=== PATIENT | female | born 1945 | race Caucasian/White ===

== ENCOUNTER → 2017-05-14 | Day surgery (SDC) | payer MEDICARE ==
[~2017-05-14] VITALS: Ht 157.5 cm; Wt 56.1 kg
[~2017-05-14] MED LIST: ARTIFICIALS TEA30 ML OPHTH; ASPIR-LOW81 MG PO; AYR50 ML NOSE; AZO CRANBERRY1 EAC1 PO; CALCIUM 600 +1 EAC6 PO; CENTRUM SILVER1 TAB PO; CLINORIL200 MG PO; CO Q-10100 MG PO; EVISTA60 MG PO; KLONOPIN1 M1 PO; LIVALO2 MG PO; MILK OF MA400 MG/5 M PO; MIRALAX17 GM PO; MUCINEX1200 MG PO; NORCO 5-325 MG1 TAB PO; NORCO 5-325 TA1 EACH PO; OSTEO BI-FLEX1 EAC1 PO; PRESERVISION A1 EAC1 PO; SURFAK240 MG PO; TYLENOL325 MG PO; VITAMIN E400 UNI1 PO
--- NOTE | ~2017-05-14 | OR ---
PATIENT'S NAME: JOSTIN BARTON [facility] AGE: 71 Y [address] ROOM: [place] [id number] LOCATION: [facility] – [place] ADMIT DATE: 05/14/2017 OR/Procedure Report DISCHARGE DATE: FAMILY PHYSICIAN: Esa Craft MD ATTENDING PHYSICIAN: SCOTT MATSON SURGEON: Scott Matson MD RICE FARMWORKER: None. 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 POSTOPERATIVE DIAGNOSIS: Right chin basal cell carcinoma. PROCEDURE PERFORMED: 1. Wide local excision right chin basal cell carcinoma 4.4 x 3.3 cm. 2. Local flap reconstruction 7.0 x 6.0 cm. ANESTHESIA: General endotracheal. COMPLICATIONS: None. BLOOD LOSS: 15 mL. SPECIMENS: Right chin lesions. FINDINGS: Negative frozen section margins. INDICATIONS: The patient is a pleasant, 71-year-old female with a history of a biopsy-proven right chin basal cell carcinoma. We discussed surgical excision which she provided informed consent for. PROCEDURE IN DETAIL: The patient was brought from the preoperative area to the operative suite, placed on table in supine position. All pressure points were padded. A time-out was performed correctly identifying the patient and the procedure. General endotracheal anesthesia was initiated. The right chin was marked out and injected with 1% lidocaine with epinephrine and 0.5% Marcaine with epinephrine in a 1:1 ratio. The area was prepped and draped in usual sterile fashion. This was excised in a circular fashion with 3 mm margins down to the subcutaneous layer above the orbicularis donaldo. This was taken off, marked with suture, and sent for frozen section margin which returned negative. A rotational flap was developed and wide undermining performed. This was inset with 5-0 Vicryl sutures deep and 5-0 fast gut sutures for the skin. Burow's triangles were removed as necessary. Ointment was applied. The patient was returned to the care of anesthesia for extubation and recovery. PATIENT'S NAME: JOSTIN BARTON [facility] AGE: 71 Y [address] ROOM: [place] [address] LOCATION: [facility] [place] ADMIT DATE: 05/14/2017 OR/Procedure Report DISCHARGE DATE: FAMILY PHYSICIAN: Eas Craft MD ATTENDING PHYSICIAN: HUYEN,SCOTT MD MARYELLEN TORRES/giovany /[id number] d: 05/14/17 1230 t: 05/22/17 1108, OPERATIVE SUMMARY
[2017-05-14 07:10] LABS: BASOPHIL % 0.5 %; EOSINOPHIL # 0.2 K/uL (0.0-0.5); EOSINOPHIL % 3.6 %; HEMATOCRIT 42.1 % (33.0-46.0); IMMATURE GRANULOCYTE % 0.2 %; LYMPHOCYTE # 1.5 K/uL (0.8-4.0); LYMPHOCYTE % 27.5 %; MCH 29.5 pg (27.0-34.0); MCHC 33.3 gm/dL (32.0-36.5); MCV 88.8 fl (83.0-98.0); MONOCYTE # 0.6 K/uL (0.0-1.0); MONOCYTE % 9.9 %; MPV 10.1 fl (9.4-12.4); NEUTROPHIL # (ANC) 3.2 K/uL (1.8-7.8); NEUTROPHIL % 58.3 %; NRBC % 0 /100WBC (0-0.00); PLATELET COUNT 164 K/uL (150-450); RBC 4.74 M/uL (3.50-5.50); RDW-CV 12.1 % (11.9-14.6); WBC 5.5 K/uL (4.0-11.0)
[2017-05-14 07:29] LABS: ALK PHOS 86 IU/L (33-138); ALT 28 IU/L (12-78); ANION GAP 10.2 (10.0-19.0); AST 27 IU/L (10-40); BLOOD UREA NITROGEN 17 mg/dL (6-24); CALCIUM 9.3 mg/dL (8.5-10.5); CHLORIDE 108 mMol/L (96-110); CO2 28 mMol/L (22-32); CREATININE 0.8 mg/dL (0.5-1.1); ESTIMATED GFR (MDRD EQUATION) > 60; POTASSIUM 4.2 mMol/L (3.7-5.1); SODIUM 142 mMol/L (135-145); TOTAL BILIRUBIN 0.6 mg/dL (0.0-1.5); TOTAL PROTEIN 7.2 g/dL (6.0-8.4)
== END ==
LOC: GPOC 05-08 11:00 → GSDC 06:40
PROVIDERS: Otolaryngology
PROC: 0HX1XZZ Transfer Face Skin, External Approach (ICD-10-PCS; principal; 2017-05-14)
DX: C44.319 Basal cell carcinoma of skin of other parts of face (principal); E78.5 Hyperlipidemia, unspecified; M19.90 Unspecified osteoarthritis, unspecified site; Z88.2 Allergy status to sulfonamides; Z88.8 Allergy status to other drugs, medicaments and biological substances; Z79.899 Other long term (current) drug therapy; Z79.82 Long term (current) use of aspirin
CPT/HCPCS: J2001; J2250; J2405; J3010; J7030